=== PATIENT | male | born 1945 | race Caucasian/White ===

== ENCOUNTER 2024-08-27 12:09 | Emergency (ER) | payer MEDICARE, OTHER, SELFPAY ==
[2024-08-27 12:17] VITALS: BP 134/65
[2024-08-27 12:32] LABS: % Basophils 0.3 % (0-2); % Eosinophils 0.9 % (0-6); % Immature Granulocytes 0.1 % (0-0.5); % Monocytes 5.9 % (1.7-9.3); % Neutrophils 73.8 % (42.2-75.2); Absolute Eosinophils 0.1 10^3/uL (0-0.7); Absolute Lymphocytes 1.3 10^3/uL (1.2-3.4); Absolute Monocytes 0.4 10^3/uL (0.1-0.6); Absolute Neutrophils 5.1 10^3/uL (1.4-6.5); Hematocrit 39.6 % (39.0-52.0); Hemoglobin 13.5 g/dL (13.0-18.0); Mean Corp Hgb Conc. 34.1 g/dL (33.0-37.0); Mean Corpuscular Hgb 31.3 pg (27.0-31.0); Mean Corpuscular Volume 91.7 fL (80.0-94.0); Mean Platelet Volume 11.2 fL (7.4-10.4); Nucleated Red Blood Cells % 0 % (-); Platelet Count 184 10^3/uL (130-400); Red Blood Cell Count 4.32 10^6/uL (4.70-6.10); Red Cell Dist. Width 13.4 % (11.5-14.5); White Blood Cell Count 6.9 10^3/uL (4.8-10.8)
[2024-08-27 12:59] LABS: Troponin I < 0.012 ng/ml
[2024-08-27 13:00] LABS: ALT (SGPT) 15 U/L (0-50); AST (SGOT) 20 U/L (17-59); Albumin 4.1 g/dl (3.5-5.0); Alkaline Phosphatase 78 U/L (38-126); Blood Urea Nitrogen 23 mg/dl (9-20); Calcium 9.1 mg/dl (8.4-10.2); Carbon Dioxide 22 mmol/L (22-30); Chloride 107 mmol/L (98-107); Glucose 183 mg/dl (70-99); Potassium 4.1 mmol/L (3.5-5.1); Sodium 140 mmol/L (135-145); Total Bilirubin 0.7 mg/dl (0.2-1.3); Total Protein 6.4 g/dl (6.3-8.2); eGFR > 60.00
[2024-08-27 14:33] VITALS: BP 130/76
--- NOTE | 2024-08-27 14:54 | ED.GENMED ---
History of Present Illness
General
Chief Complaint: Chest Pain
Time Seen by Provider: 08/27/24 14:53
History of Present Illness
History of Present Illness:
TIME OF INITIAL ENCOUNTER: 3 PM
HPI: The patient presents due to general unwell feeling. At times he has been feeling somewhat cold and clammy. He states that 2 weeks ago, he struck his head on the trunk door of a car but has not been having any headaches. He has been having an
upper abdominal discomfort. He has multiple stressors recently including a new dog, of that has been in the hospital and is 10 years older than him, son-in-law suspects degree of stress/anxiety. He also states that he felt that he was in
A-fib all weekend. He is scheduled to have an echo in about 2 weeks and then was to have an ablation with Dr. Vences.
EXAM:
GENERAL: Well appearing in no distress
HEENT: Moist oral mucosa
CARDIOVASCULAR: No murmurs, normal heart rate, regular rhythm, No chest wall tenderness
PULMONARY: No respiratory distress, breath sounds are clear and equal
ABDOMEN: Soft with no peritoneal signs, no tenderness
NEUROLOGIC: Excellent strength all extremities, no coordination deficits
PSYCHIATRIC: Appropriate mental status, normal insight and judgement, appears somewhat anxious
EXTREMITIES: Nontender, no edema, moves all extremities equally
SKIN: No rash, no lesions
NUMBER AND COMPLEXITY OF PROBLEMS ADDRESSED AT THE ENCOUNTER
� Chronic conditions affecting care: Atrial fibrillation, BPH, hemochromatosis
� Acute Exacerbation and/or Progression of Chronic Illness:
� Differential Diagnosis includes: Atrial fibrillation, ACS very unlikely, stress/anxiety, highly doubt intracranial hemorrhage as head injury was 2+ weeks ago and he has no headache, GERD
AMOUNT AND/OR COMPLEXITY OF DATA TO BE REVIEWED AND ANALYZED
� I performed an independent evaluation of and my interpretation is:
EKG: Sinus 81, normal axis, no acute ST abnormality
CT:
X-rays:
Laboratory Studies: CBC unremarkable, troponin less than 0.012, glucose 183, BUN 23 otherwise chemistries unremarkable
Other:
� Review of other/old records: I reviewed records, the patient was seen here for paroxysmal A-fib in 2014
� Clinical information was obtained by an independent historian: I spoke to son-in-law at bedside
� Prescriptions/Medications Considered but not given:
� Further testing considered but not performed:
RISK OF COMPLICATIONS AND/OR MORBIDITY OR MORTALITY OF PATIENT MANAGEMENT
� Social determinants of health affecting care: Lives at home
� Discussion with other providers:
� Escalation of care including admission/observation vs risk of discharge considered: Patient was given low-dose Xanax as a one-time dose as well as Pepcid. Strong suspect component of stress/anxiety.
ANY OTHER UPDATES:
4 PM: On reassessment after Pepcid and Xanax were given, he no longer has any abdominal/chest but stills feels about the same regarding anxiety. Given his age, will hold off on any benzos. To follow-up with cardiology and PMD. I also suggest that
he try PPI/H2 yazan as outpatient
Past History
Past History
ED Past Medical History: Hypercholesterolemia
ED Past Surgical History: Appendectomy and Other (Inguinal hernia repair)
Social History
Tobacco: Non-smoker
Alcohol: None
Drug: None
Personal:
Living: with family
Employment: Retired
Family History
Family History: Unable to obtain
Phy Exam
Physical Exam
Physical Exam:
See HPI
Scores
Heart Score for Chest Pain Patients
STEMI patient?: Not applicable
Course
Orders/Labs/Results
Orders:
Orders
08/27/24 12:11
Electrocardiogram (*1) Urgent
Reason for Study: Chest Pain
EKG- Treatment ONCE
08/27/24 12:26
Complete Blood Count/With Diff Urgent
Comprehensive Metabolic Panel Urgent
Troponin I Urgent
08/27/24 15:06
Alprazolam [Xanax] 0.5 mg PO NOW STA
Famotidine [Pepcid] 20 mg PO NOW STA
Abnormal Lab Results
08/27/24
12:26
RBC 4.32 L 10^6/uL
(4.70-6.10)
MCH 31.3 H pg
(27.0-31.0)
MPV 11.2 H fL
(7.4-10.4)
Lymphocytes % 19.0 L %
(20.5-51.1)
BUN 23 H mg/dl
(9-20)
Glucose 183 H mg/dl
(70-99)
08/27/24 12:26
08/27/24 12:26
Vital Signs
Initial and Last Documented VS:
Initial Vital Signs
Temp Pulse Resp BP Pulse Ox
36.7 C 91 16 134/65 98
08/27/24 12:17 08/27/24 12:17 08/27/24 12:17 08/27/24 12:17 08/27/24 12:17
Last Documented Vital Signs
Temp Pulse Resp BP Pulse Ox
37.0 C 66 18 130/76 98
08/27/24 14:33 08/27/24 14:33 08/27/24 14:33 08/27/24 14:33 08/27/24 14:33
*Critical Care Note
Total Time (30-74mins, 75-104mins- exclusive of procedures): Not Applicable
ED Attending Note
-
Portions of this chart may have been created with voice recognition software.� Occasional wrong word or��sound alike� substitutions may have occurred due to the inherent limitations of voice recognition software.
Discharge Plan
Departure
Patient Disposition: Home (Routine Discharge)
Date of Disposition: 08/27/24
Time of Disposition: 16:04
Patient with high blood pressure during this ER visit?: Yes
Discharge Problem:
Abdominal pain, epigastric
Instructions: Acid reflux and GERD in adults, Chest pain
Prescriptions:
No Action
coenzyme Q10 [CoQ-10] 100 MG capsule
100 mg PO .Q48HR
bogjiscp-wjg-XX-lycopen-lutein [Centrum Silver] 1 EACH tablet
1 ea PO DAILY
simvastatin 20 MG tablet
20 mg PO QPM Qty: 30 11RF
metoprolol succinate 50 MG tablet extended release 24 hr
50 mg PO DAILY Qty: 30 11RF
warfarin [Jantoven] 2.5 MG tablet
5 mg PO DAILY Qty: 60 6RF
Rx Instructions:
Please take 5mg (2 tablets) of coumadin tonight (05/31), 06/01, 06/02. You have an appointment with the coumadin clinic on Saturday 06/03 at 2:15pm for an INR check. They will dose further from there.
meclizine 25 MG tablet
25 mg PO Q8HPRN PRN (Reason: nausea or vertigo) Qty: 20 0RF
ondansetron 4 MG tablet,disintegrating
4 mg PO TIDPRN PRN (Reason: nausea/vomiting) Qty: 15 0RF
amoxicillin-pot clavulanate 1 TABLET tablet
1 tab PO Q12 Qty: 13 0RF
Referrals:
UNKNOWN - PT DOES,NOT KNOW [Family Provider] -
Activity Restrictions/Additional Instructions:
The cause of your symptoms is unclear. It could be related to stress/anxiety. Cardiac blood work is normal. We gave a one-time dose of Xanax 0.5 mg and also a dose of Pepcid 20 mg. You could take [id number] Pepcid for relief of upper
abdominal pain in case this could be related to excess stomach acid. You could also try a 2-week course of bhvd-suq-obmzfym omeprazole to help block the production of acid. Pepcid is generally used on an as-needed basis and omeprazole is used
daily for 2 weeks. Follow-up with primary care. Continue to follow-up with your donor support technician as well.
Interventions
Interventions:
*Risk Screen - Suicide Last Done: 08/27/24 12:17
*General Assessment Last Done: 08/27/24 15:32
*Neglect/Abuse Screening Last Done: 08/27/24 12:17
*ED- Fall Risk Assessment Last Done: 08/27/24 15:32
*ED COVID-19 Vaccine History Last Done: 08/27/24 15:32
ED- Cardiac Assessment Last Done: 08/27/24 15:32
Discharge Date and Time
Print Language: SOUTH AFR[place]
[2024-08-27 15:28] VITALS: BMI 26.4
[2024-08-27] MEDS: XANAX 0.5 MG PO (15:30)
[2024-08-27] MEDS: PEPCID 20 MG PO (15:30)
[2024-08-27 16:16] VITALS: BP 136/95
== END 2024-08-27 16:23 | disposition home or self-care (01) ==
LOC: EMR 12:09
PROVIDERS: Student in an Organized Health Care Education/Training Program; EMERGENCY PHYSICIAN Emergency Medicine; FAMILY PHYSICIAN Internal Medicine Geriatric Medicine
DX: R10.13 Epigastric pain (principal); R03.0 Elevated blood-pressure reading, without diagnosis of hypertension; F41.9 Anxiety disorder, unspecified; Z63.79 Other stressful life events affecting family and household
CPT/HCPCS: 99284; 80053; 84484; 85025; 93005

== ENCOUNTER → 2024-09-13 10:13 | Outpatient (REF) | payer MEDICARE, OTHER, SELFPAY | LOC: HWRCS 10:13 | PROVIDERS: ATTENDING PHYSICIAN Nuclear Medicine Nuclear Cardiology; FAMILY PHYSICIAN Internal Medicine Geriatric Medicine | DX: I48.0 Paroxysmal atrial fibrillation (principal) | CPT/HCPCS: 93306 ==

== ENCOUNTER → 2024-09-17 10:22 | Outpatient (REF) | payer MEDICARE, OTHER, SELFPAY | LOC: HWRAD 10:22 | PROVIDERS: ATTENDING PHYSICIAN Internal Medicine Geriatric Medicine | DX: R41.82 Altered mental status, unspecified (principal); R41.0 Disorientation, unspecified | CPT/HCPCS: 70450 ==

== ENCOUNTER 2024-09-21 11:52 | Emergency (ER) | payer MEDICARE, OTHER, SELFPAY ==
[2024-09-21 11:56] VITALS: BP 128/69
--- NOTE | 2024-09-21 13:33 | ED.GENMED ---
History of Present Illness
General
Chief Complaint: Crisis Evaluation
Exam Limitations: none
Time Seen by Provider: 09/21/24 12:22
Nursing documentation reviewed up to this point in time: agreed with
History of Present Illness
History of Present Illness:
Patient is an 79-year-old male who presents to the ER for evaluation. Patient is felt very depressed recently over his being sick and the recent passing of his dog and today reports he almost took his life with his gun. He reports he has
never had a history of depression and simply came on very suddenly.
Patient has no physical complaints.
Past History
Past History
ED Past Medical History: Hypercholesterolemia
ED Past Surgical History: Appendectomy and Other (Inguinal hernia repair)
Social History
Tobacco: Non-smoker
Alcohol: None
Drug: None
Personal:
Living: with family
Employment: Retired
Family History
Family History: Unable to obtain
Review of Systems
Review of Systems
Allergies reviewed?: Yes
All Other Systems: ROS reviewed and negative except as documented in HPI and ROS
Constitutional: Reports no symptoms; Denies fever, fatigue or chills
Respiratory: Reports no symptoms
Cardiac: Reports no symptoms
ABD/GI: Reports no symptoms
Musculoskeletal: Reports no symptoms
Skin: Reports no symptoms
Neurological: Reports no symptoms
Psychiatric: Reports depression and suicidal
Phy Exam
General Physical Exam
General Presentation: no apparent distress
General age: appears stated age
General Skin: warm and dry
General Habitus: normal
General Mental: alert
General Hydration: appears well hydrated
Cardiovascular Exam
Cardiovascular Exam: regular rate/rhythm, no murmur and normal peripheral pulses
Pulmonary Exam
Pulmonary Exam: lungs clear and no respiratory distress
Neurological Exam
Neurological Exam: alert and oriented x3
Musculoskeletal Exam
Musculoskeletal Exam: full ROM
Skin Exam
Skin Exam: normal color and warm/dry
Psychiatric Exam
Psychiatric Exam: other (Flat affect)
Course
Orders/Labs/Results
Orders:
Orders
09/21/24 11:53
1:1 Observation - Suicide/ Violent Behavior As Directed
Crisis Consult Urgent
Reason for Consult: SI
09/21/24 12:04
EKG [Electrocardiogram (*1)] Urgent
Reason for Study: Chest Pain
09/21/24 12:05
EKG- Treatment ONCE
09/21/24 14:37
Acetaminophen Urgent
Alcohol Urgent
Complete Blood Count/With Diff Urgent
Comprehensive Metabolic Panel Urgent
Fentanyl, Urine Urgent
Salicylate Urgent
Urine Drug Abuse Screen Urgent
Date Specimen was Collected: 09/21/24
Time Specimen was Collected: 14:33
09/21/24 15:52
COVID-19 Antigen Urgent
Source: Nasal Swab
Abnormal Lab Results
09/21/24
14:37
RBC 4.27 L 10^6/uL
(4.70-6.10)
MPV 10.9 H fL
(7.4-10.4)
Absolute Monos (auto) 0.9 H 10^3/uL
(0.1-0.6)
Lymphocytes % 20.3 L %
(20.5-51.1)
Monocytes % 11.5 H %
(1.7-9.3)
Chloride 108 H mmol/L
(98-107)
BUN 24 H mg/dl
(9-20)
Salicylates < 1.0 L mg/dl
(2.0-20.0)
Acetaminophen < 10 L ug/ml
(10-30)
U Benzodiazepines Scrn Positive H
(Negative)
09/21/24 14:37
09/21/24 14:37
Vital Signs
Initial and Last Documented VS:
Initial Vital Signs
Temp Pulse Resp BP Pulse Ox
98.2 F 84 18 128/69 98
09/21/24 11:56 09/21/24 11:56 09/21/24 11:56 09/21/24 11:56 09/21/24 11:56
Last Documented Vital Signs
Temp Pulse Resp BP Pulse Ox
98.2 F 84 18 128/69 98
09/21/24 11:56 09/21/24 11:56 09/21/24 11:56 09/21/24 11:56 09/21/24 11:56
MDM/Problems Addressed
Differential Diagnosis Includes:
Not limited to: suicidal ideation, depression
MDM/Problems Addressed:
Patient presents for suicidal ideation recent depression which has worsened. Patient was eval by crisis and they do recommend inpatient will check basic labs. Patient has no physical complaints.
Patient is medically cleared for crisis. As per crisis patient should have a inpatient bed at [facility].
Chronic conditions affecting care:
Patient presents for suicidal ideation, recent depression which is worsened
*Pulse Oximetry
Patient hypoxic: no
*Critical Care Note
Total Time (30-74mins, 75-104mins- exclusive of procedures): Not Applicable
ED Attending Note
-
Portions of this chart may have been created with voice recognition software.� Occasional wrong word or��sound alike� substitutions may have occurred due to the inherent limitations of voice recognition software.
Discharge Plan
Departure
Patient Disposition: Psych Facility
Date of Disposition: 09/21/24
Time of Disposition: 16:35
Covid-19: Not Applicable
Discharge Problem:
Suicidal ideation
Prescriptions:
No Action
coenzyme Q10 [CoQ-10] 100 MG capsule
100 mg PO .Q48HR
igwhhdxa-vms-RG-lycopen-lutein [Centrum Silver] 1 EACH tablet
1 ea PO DAILY
simvastatin 20 MG tablet
20 mg PO QPM Qty: 30 11RF
metoprolol succinate 50 MG tablet extended release 24 hr
50 mg PO DAILY Qty: 30 11RF
warfarin [Jantoven] 2.5 MG tablet
5 mg PO DAILY Qty: 60 6RF
Rx Instructions:
Please take 5mg (2 tablets) of coumadin tonight (05/31), 06/01, 06/02. You have an appointment with the coumadin clinic on Saturday 06/03 at 2:15pm for an INR check. They will dose further from there.
meclizine 25 MG tablet
25 mg PO Q8HPRN PRN (Reason: nausea or vertigo) Qty: 20 0RF
ondansetron 4 MG tablet,disintegrating
4 mg PO TIDPRN PRN (Reason: nausea/vomiting) Qty: 15 0RF
amoxicillin-pot clavulanate 1 TABLET tablet
1 tab PO Q12 Qty: 13 0RF
alprazolam [Xanax] 0.5 mg tablet
0.5 mg PO DAILY PRN (Reason: anxiety) Qty: 7 0RF
Referrals:
Demetri Sevilla MD [Family Provider] -
Interventions
Interventions:
*Risk Screen - Suicide Last Done: 09/21/24 11:52
*General Assessment Last Done: 09/21/24 11:56
*Neglect/Abuse Screening Last Done: 09/21/24 12:00
*ED- Fall Risk Assessment Last Done: 09/21/24 12:00
*ED COVID-19 Vaccine History Last Done: 09/21/24 12:00
*Nursing Disposition Last Done: 09/21/24 20:19
ED-Psychological Assessment Last Done: 09/21/24 12:05
Discharge Date and Time
Discharge Date/Time: 09/21/24 20:20
Print Language: ETHIOPIAN
--- NOTE | 2024-09-21 14:13 | EDRN ---
Valdez states ' I feel as if all the jenni in my life is over', ' I feel that I have failed', ' I dont think this is a hump I will get over, I think this is how life is now', ' The thoughts of how to end my life are always there, always ideas racing on
how I would end it'. Valdez reports that he does have guns and knives at home, he is agreeable to his step son removing them from the home till Valdez does not have thoughts of hurting himself. Valdez agress that they are not being sold and that this is
for his safety at this time.
[2024-09-21 14:30] VITALS: BMI 26.7
[2024-09-21 14:52] LABS: % Basophils 0.3 % (0-2); % Eosinophils 1.2 % (0-6); % Immature Granulocytes 0.4 % (0-0.5); % Lymphocytes 20.3 % (20.5-51.1); % Monocytes 11.5 % (1.7-9.3); % Neutrophils 66.3 % (42.2-75.2); Absolute Eosinophils 0.1 10^3/uL (0-0.7); Absolute Lymphocytes 1.5 10^3/uL (1.2-3.4); Absolute Monocytes 0.9 10^3/uL (0.1-0.6); Hematocrit 39.3 % (39.0-52.0); Hemoglobin 13.2 g/dL (13.0-18.0); Mean Corp Hgb Conc. 33.6 g/dL (33.0-37.0); Mean Corpuscular Hgb 30.9 pg (27.0-31.0); Mean Platelet Volume 10.9 fL (7.4-10.4); Nucleated Red Blood Cells % 0 % (-); Platelet Count 183 10^3/uL (130-400); Red Blood Cell Count 4.27 10^6/uL (4.70-6.10); Red Cell Dist. Width 13.2 % (11.5-14.5); White Blood Cell Count 7.5 10^3/uL (4.8-10.8)
[2024-09-21 15:04] LABS: ALT (SGPT) 14 U/L (0-50); AST (SGOT) 18 U/L (17-59); Acetaminophen < 10 ug/ml (10-30); Albumin 3.9 g/dl (3.5-5.0); Alkaline Phosphatase 69 U/L (38-126); Blood Urea Nitrogen 24 mg/dl (9-20); Calcium 9.3 mg/dl (8.4-10.2); Carbon Dioxide 27 mmol/L (22-30); Chloride 108 mmol/L (98-107); Estimated Creatinine Clearance 50 ml/min; Glucose 90 mg/dl (70-99); Salicylate < 1.0 mg/dl (2.0-20.0); Sodium 140 mmol/L (135-145); Total Bilirubin 0.5 mg/dl (0.2-1.3); Total Protein 6.4 g/dl (6.3-8.2); eGFR > 60.00
[2024-09-21 15:09] LABS: Alcohol None Detected
[2024-09-21 15:20] LABS: Amphetamines Negative (Negative); Barbiturates Negative (Negative); Benzodiazepines Positive (Negative); Buprenorphine Negative (Negative); Cocaine Negative (Negative); Marijuana Negative (Negative); Methadone Negative (Negative); Methamphetamines Negative (Negative); Opiates Negative (Negative); Phencyclidine Negative (Negative); Tricyclic Antidepressants Negative (Negative)
[2024-09-21 15:36] LABS: Fentanyl, Urine Negative (Negative)
[2024-09-21 16:16] LABS: COVID-19 Antigen Negative (Negative)
== END 2024-09-21 20:20 ==
LOC: EMR 11:52
PROVIDERS: Nurse Practitioner; EMERGENCY PHYSICIAN Emergency Medicine; FAMILY PHYSICIAN Internal Medicine Geriatric Medicine
DX: R45.851 Suicidal ideations (principal); F32.A Depression, unspecified; E78.00 Pure hypercholesterolemia, unspecified; Z90.49 Acquired absence of other specified parts of digestive tract
CPT/HCPCS: 99283; 80053; 80143; 80179; 80306; 80307; 82077; 85025; 87811; 93005

== ENCOUNTER 2024-10-07 06:00 | Emergency (ER) | payer MEDICARE, OTHER, SELFPAY ==
[2024-10-07 06:04] VITALS: BP 167/87
--- NOTE | 2024-10-07 07:01 | ED.GENMED ---
History of Present Illness
General
Chief Complaint: Psychiatric Problem
Source: patient
Exam Limitations: none
Time Seen by Provider: 10/07/24 06:40
History of Present Illness
History of Present Illness:
79-year-old male presents with son who states the patient has been experiencing a degree of psychosis and paranoia. He was here 2 weeks ago with suicidal ideation and spent a week at [facility]. He was started on certain medications and
discontinued on them. Recently saw family doctor. He has been excessively paranoid recently in the last 2 days stating that his house is going to collapse and he does not have money to repair it. He actually called 911 this morning. Patient
denies thoughts of harming self or others. He denies pain. Family requesting medical and psychiatric evaluation.
Past History
Past History
ED Past Medical History: Hypercholesterolemia
ED Past Surgical History: Appendectomy and Other (Inguinal hernia repair)
Social History
Tobacco: Non-smoker
Alcohol: None
Drug: None
Personal:
Living: with family
Employment: Retired
Family History
Family History: Unable to obtain
Phy Exam
Physical Exam
Physical Exam:
General: Well-developed male no acute respiratory
Psychiatric exam: Pacing in the room repeatedly saying the house is going to collapse and I have no money to repair it. He is denying suicidal thoughts.
Neurologic exam: Normal gait. He is alert and oriented to person and place
Heart: Regular rate and rhythm
Lungs: Clear no wheeze
Skin: Area of contusion/ecchymosis over the left superior forehead
HEENT normocephalic equal round reactive to light
Course
Orders/Labs/Results
Orders:
Orders
10/07/24 06:20
Crisis Consult Urgent
Reason for Consult: pt with paranoia
10/07/24 06:59
CT Head W/o Iv Contrast Urgent
Comment:
Reason For Exam: head injury, paranoia
10/07/24 07:26
Alcohol Urgent
Complete Blood Count/With Diff Urgent
Comprehensive Metabolic Panel Urgent
Drug Screen, Urine [Urine Drug Abuse Screen] Urgent
Date Specimen was Collected: 10/07/24
Time Specimen was Collected: 07:22
Urinalysis Reflex To Culture Urgent
Date Specimen was Collected: 10/07/24
Time Specimen was Collected: 07:22
Urine Microscopic Reflex Cult Urgent
Abnormal Lab Results
10/07/24
07:26
RBC 4.13 L 10^6/uL
(4.70-6.10)
Hgb 12.8 L g/dL
(13.0-18.0)
Hct 37.5 L %
(39.0-52.0)
MPV 10.5 H fL
(7.4-10.4)
Absolute Lymphs (auto) 1.0 L 10^3/uL
(1.2-3.4)
Absolute Monos (auto) 0.8 H 10^3/uL
(0.1-0.6)
Neutrophils % 77.3 H %
(42.2-75.2)
Lymphocytes % 11.7 L %
(20.5-51.1)
Chloride 110 H mmol/L
(98-107)
BUN 26 H mg/dl
(9-20)
Glucose 103 H mg/dl
(70-99)
Ur Occult Blood Reflex 1+ A
(Negative)
Urine Bacteria (Reflex) Few A
(Negative)
Urine Albumin (Reflex) 1+ A
(Neg - Trace)
10/07/24 07:26
10/07/24 07:26
Vital Signs
Initial and Last Documented VS:
Initial Vital Signs
Temp Pulse Resp BP Pulse Ox
98.1 F 71 20 167/87 100
10/07/24 06:04 10/07/24 06:04 10/07/24 06:04 10/07/24 06:04 10/07/24 06:04
Last Documented Vital Signs
Temp Pulse Resp BP Pulse Ox
98.1 F 71 14 137/79 97
10/07/24 06:04 10/07/24 12:49 10/07/24 12:49 10/07/24 12:49 10/07/24 12:49
MDM/Problems Addressed
Differential Diagnosis Includes:
Patient with significant anxiety, paranoia and psychosis. Continually repeating himself. There is some evidence of contusion to the forehead. Will order CT head to evaluate for any traumatic injury. Labs pending. Consult ordered. Patient and
family are interested in psychiatric help. He may require placement into a facility.
*Critical Care Note
Total Time (30-74mins, 75-104mins- exclusive of procedures): Not Applicable
Update Note
Update Note:
Medically, the patient was evaluated. CT of the head was within normal limits. Labs reviewed without significant finding. Patient seen and evaluated by the crisis department. They are starting a bed search. It is possible that the patient may
be a hold here in the emergency room until there is a bed available.
Patient accepted at a facility called [facility]. He is being picked up at 530 today.
ED Attending Note
-
Portions of this chart may have been created with voice recognition software.� Occasional wrong word or��sound alike� substitutions may have occurred due to the inherent limitations of voice recognition software.
Discharge Plan
Departure
Patient Disposition: Psych Facility
Date of Disposition: 10/07/24
Time of Disposition: 13:01
Patient with high blood pressure during this ER visit?: No
Discharge Problem:
Psychosis
Prescriptions:
No Action
simvastatin 20 MG tablet
20 mg PO QPM Qty: 30 11RF
metoprolol succinate 50 MG tablet extended release 24 hr
25 mg PO DAILY
simvastatin [Zocor] 20 mg Tablet
20 mg PO HS
finasteride [Proscar] 5 mg Tablet
5 mg PO DAILY
mirtazapine 7.5 mg Tablet
7.5 mg PO HS
duloxetine [Cymbalta] 30 mg Capsule,Delayed Release(Dr/Ec)
30 mg PO DAILY
eszopiclone [Lunesta] 1 mg Tablet
Rx Instructions:
if 1 mg is not enough take 2mg.
aspirin 81 mg Capsule
81 mg PO DAILY
Referrals:
UNKNOWN - PT DOES,NOT KNOW [Family Provider] -
Interventions
Interventions:
*Risk Screen - Suicide Last Done: 10/07/24 06:04
*General Assessment Last Done: 10/07/24 06:04
*Neglect/Abuse Screening Last Done: 10/07/24 06:04
*ED- Fall Risk Assessment Last Done: 10/07/24 06:04
*ED COVID-19 Vaccine History Last Done: 10/07/24 06:04
ED-Psychological Assessment Last Done: 10/07/24 07:27
Discharge Date and Time
Print Language: CHILEAN
[2024-10-07 07:41] LABS: % Basophils 0.2 % (0-2); % Eosinophils 1.5 % (0-6); % Immature Granulocytes 0.4 % (0-0.5); % Lymphocytes 11.7 % (20.5-51.1); % Monocytes 8.9 % (1.7-9.3); % Neutrophils 77.3 % (42.2-75.2); Absolute Eosinophils 0.1 10^3/uL (0-0.7); Absolute Monocytes 0.8 10^3/uL (0.1-0.6); Absolute Neutrophils 6.5 10^3/uL (1.4-6.5); Hematocrit 37.5 % (39.0-52.0); Hemoglobin 12.8 g/dL (13.0-18.0); Mean Corp Hgb Conc. 34.1 g/dL (33.0-37.0); Mean Corpuscular Volume 90.8 fL (80.0-94.0); Mean Platelet Volume 10.5 fL (7.4-10.4); Nucleated Red Blood Cells % 0 % (-); Platelet Count 198 10^3/uL (130-400); Red Blood Cell Count 4.13 10^6/uL (4.70-6.10); Red Cell Dist. Width 13.2 % (11.5-14.5); White Blood Cell Count 8.4 10^3/uL (4.8-10.8)
[2024-10-07 07:58] LABS: Amphetamines Negative (Negative); Barbiturates Negative (Negative); Benzodiazepines Negative (Negative); Buprenorphine Negative (Negative); Cocaine Negative (Negative); Marijuana Negative (Negative); Methadone Negative (Negative); Methamphetamines Negative (Negative); Opiates Negative (Negative); Phencyclidine Negative (Negative); Tricyclic Antidepressants Negative (Negative)
[2024-10-07 07:59] LABS: ALT (SGPT) 25 U/L (0-50); AST (SGOT) 31 U/L (17-59); Alkaline Phosphatase 72 U/L (38-126); Blood Urea Nitrogen 26 mg/dl (9-20); Calcium 9.2 mg/dl (8.4-10.2); Carbon Dioxide 24 mmol/L (22-30); Chloride 110 mmol/L (98-107); Glucose 103 mg/dl (70-99); Potassium 4.6 mmol/L (3.5-5.1); Sodium 140 mmol/L (135-145); Total Bilirubin 0.7 mg/dl (0.2-1.3); Total Protein 6.4 g/dl (6.3-8.2); eGFR > 60.00
[2024-10-07 08:00] LABS: Alcohol None Detected
[2024-10-07 09:24] LABS: Urine Albumin 1+ (Neg - Trace); Urine Bilirubin Negative (Negative); Urine Character Clear (Clear); Urine Color Yellow; Urine Glucose Negative (Negative); Urine Ketone Negative (Negative); Urine Leukocyte Negative (Negative); Urine Nitrite Negative (Negative); Urine Occult Blood 1+ (Negative); Urine Urobilinogen Negative (Neg - 1+)
[2024-10-07 09:39] LABS: Urine Bacteria Few (Negative); Urine Mucus Moderate; Urine Red Blood Cell 0-2 /HPF (0-2); Urine Squamous Cell 0-2 /LPF (Few); Urine White Cell 0-2 /HPF (0-5)
[2024-10-07 12:49] VITALS: BP 137/79
== END 2024-10-07 17:39 ==
LOC: EMR 06:00
PROVIDERS: Physician Assistant; EMERGENCY PHYSICIAN Emergency Medicine
DX: F29 Unspecified psychosis not due to a substance or known physiological condition (principal); E78.00 Pure hypercholesterolemia, unspecified; S00.03XA Contusion of scalp, initial encounter; X58.XXXA Exposure to other specified factors, initial encounter
CPT/HCPCS: 99285; 70450; 80053; 80306; 81003; 81015; 82077; 85025

== ENCOUNTER 2024-11-05 06:59 | Emergency (ER) | payer MEDICARE, OTHER, SELFPAY ==
[2024-11-05] VITALS (13 sets, daily range): BP systolic 108–145; BP diastolic 58–76
--- NOTE | 2024-11-05 07:23 | ED.GENMED ---
History of Present Illness
General
Chief Complaint: Crisis Evaluation
Source: family
Exam Limitations: dementia
Time Seen by Provider: 11/05/24 07:11
History of Present Illness
History of Present Illness:
See MDM
Past History
Past History
ED Past Medical History: Hypercholesterolemia and Psychiatric
ED Past Surgical History: Appendectomy and Other (Inguinal hernia repair)
Social History
Tobacco: Non-smoker
Alcohol: None
Drug: None
Personal:
Living: with family
Employment: Retired
Family History
Family History: Unable to obtain
Phy Exam
Physical Exam
Physical Exam:
See MDM
Course
Orders/Labs/Results
Orders:
Orders
11/05/24 07:22
Crisis Consult Urgent
Reason for Consult: psychosis
Lorazepam [Ativan] 1 mg IV NOW STA
11/05/24 07:30
Complete Blood Count/With Diff Urgent
Comprehensive Metabolic Panel Urgent
11/05/24 07:41
Urinalysis Reflex To Culture Urgent
Date Specimen was Collected: 11/05/24
Time Specimen was Collected: 07:41
Urine Microscopic Reflex Cult Urgent
Abnormal Lab Results
11/05/24 11/05/24
07:30 07:41
RBC 3.74 L 10^6/uL
(4.70-6.10)
Hgb 11.8 L g/dL
(13.0-18.0)
Hct 33.9 L %
(39.0-52.0)
MCH 31.6 H pg
(27.0-31.0)
MPV 11.2 H fL
(7.4-10.4)
Absolute Lymphs (auto) 1.0 L 10^3/uL
(1.2-3.4)
Lymphocytes % 18.5 L %
(20.5-51.1)
Monocytes % 11.1 H %
(1.7-9.3)
Chloride 108 H mmol/L
(98-107)
BUN 23 H mg/dl
(9-20)
Glucose 100 H mg/dl
(70-99)
Total Protein 6.1 L g/dl
(6.3-8.2)
Urine Ketones 2+ A
(Negative)
Ur Occult Blood Reflex 1+ A
(Negative)
Urine RBC 3-6 A /HPF
(0-2)
11/05/24 07:30
11/05/24 07:30
Vital Signs
Initial and Last Documented VS:
Initial Vital Signs
Temp Pulse Resp BP Pulse Ox
98.0 F 85 18 120/65 97
11/05/24 07:01 11/05/24 07:01 11/05/24 07:01 11/05/24 07:01 11/05/24 07:01
Last Documented Vital Signs
Temp Pulse Resp BP Pulse Ox
99.2 F 71 18 127/67 96
11/05/24 07:41 11/05/24 10:27 11/05/24 07:01 11/05/24 10:24 11/05/24 10:24
MDM/Problems Addressed
Differential Diagnosis Includes:
Note:
CHIEF COMPLAINT(S)
Altered mental status and behavioral changes.
HISTORY OF PRESENT ILLNESS
The patient is an 79-year-old male who presents with altered mental status and behavioral changes. He was recently hospitalized for approximately three weeks at a [facility] facility. Since returning home, the patient has exhibited increased agitation
and attempted to leave his residence on multiple occasions, prompting police involvement. He has also demonstrated physical aggression, such as pushing. The patients spouse and family members report significant stress in managing his behavior.
ADDITIONAL HISTORY OBTAINED FROM SOURCES OTHER THAN THE PATIENT
According to the family member, the patient has been attempting to leave the house at various hours, including freelance translator, which necessitated several interventions by the police. The family also reports financial concerns regarding the patients
Medicare coverage.
PHYSICAL EXAM
General: laying in bed and intermittently trying to get out
HEENT: protecting airway
Neck: supple
CV: No evidence of cyanosis
Resp: No accessory muscle use
Abd: Non-distended
Extremities: No deformities
Neuro: alert
Psych: anxious
Skin: no trauma noted
Nursing notes reviewed and vital signs reviewed.
PLAN
Administer lorazepam (Ativan) to manage agitation. Perform routine laboratory tests, including blood work and urine analysis, to rule out any acute metabolic causes for the altered mental status. Engage the crisis team for psychiatric evaluation and
further management.
DIFFERENTIAL DIAGNOSIS
The Differential Diagnosis includes, in no particular order and is not limited to:
- Delirium secondary to infection
- Medication side effects
- Dementia with behavioral disturbances
- Acute stress reaction
- Hypoglycemia
- Electrolyte imbalance
PLAN
The patient will be placed in a psychiatric facility as he is currently willing to be admitted. The crisis team will continue working on securing a placement in a geriatric psychiatric facility.
INDEPENDENT REVIEW OF LABS AND INTERPRETATION OF TESTS
My independent review of blood work and urinalysis indicates that the patient is medically cleared from an acute metabolic standpoint.
MEDICATION RECONCILIATION
Lorazepam was administered to manage the patients agitation.
MEDICAL DECISION MAKING
1. Number & Complexity of Problems: Chronic conditions affecting care: atrial fibrillation. Differential diagnoses considered include delirium secondary to infection, medication side effects, dementia with behavioral disturbances, and acute stress
reaction.
2. Data Reviewed: Category 1: Blood work and urinalysis were reviewed to rule out metabolic causes of altered mental status.
3. Risk: Consideration of admission/observation was made due to the complexity and risk associated with the patients behavioral changes and altered mental status. Admission to a psychiatric facility is appropriate given the situation and the
patients willingness to be admitted.
*Pulse Oximetry
SaO2: 97
Oxygen Mode of Delivery: Room air
*Critical Care Note
Total Time (30-74mins, 75-104mins- exclusive of procedures): Not Applicable
ED Attending Note
-
Portions of this chart may have been created with voice recognition software.� Occasional wrong word or��sound alike� substitutions may have occurred due to the inherent limitations of voice recognition software.
Discharge Plan
Departure
Patient Disposition: Psych Facility
Date of Disposition: 11/05/24
Time of Disposition: 10:44
Discharge Problem:
Aggressive behavior, Depression
Prescriptions:
No Action
simvastatin 20 MG tablet
20 mg PO QPM Qty: 30 11RF
metoprolol succinate 50 MG tablet extended release 24 hr
25 mg PO DAILY
simvastatin [Zocor] 20 mg Tablet
20 mg PO HS
finasteride [Proscar] 5 mg Tablet
5 mg PO DAILY
mirtazapine 7.5 mg Tablet
7.5 mg PO HS
duloxetine [Cymbalta] 30 mg Capsule,Delayed Release(Dr/Ec)
30 mg PO DAILY
eszopiclone [Lunesta] 1 mg Tablet
Rx Instructions:
if 1 mg is not enough take 2mg.
aspirin 81 mg Capsule
81 mg PO DAILY
Referrals:
UNKNOWN - PT DOES,NOT KNOW [Family Provider]
Interventions
Interventions:
*Risk Screen - Suicide Last Done: 11/05/24 07:46
*General Assessment Last Done: 11/05/24 07:46
*Neglect/Abuse Screening Last Done: 11/05/24 07:46
*ED COVID-19 Vaccine History Last Done: 11/05/24 07:46
ED-Psychological Assessment Last Done: 11/05/24 07:46
Discharge Date and Time
Print Language: ECUADOREAN
[2024-11-05] MEDS: ATIVAN 1 MG IV (07:27)
[2024-11-05 08:04] LABS: % Basophils 0.2 % (0-2); % Eosinophils 1.3 % (0-6); % Immature Granulocytes 0.4 % (0-0.5); % Lymphocytes 18.5 % (20.5-51.1); % Monocytes 11.1 % (1.7-9.3); % Neutrophils 68.5 % (42.2-75.2); Absolute Eosinophils 0.1 10^3/uL (0-0.7); Absolute Monocytes 0.6 10^3/uL (0.1-0.6); Absolute Neutrophils 3.8 10^3/uL (1.4-6.5); Hematocrit 33.9 % (39.0-52.0); Hemoglobin 11.8 g/dL (13.0-18.0); Mean Corp Hgb Conc. 34.8 g/dL (33.0-37.0); Mean Corpuscular Hgb 31.6 pg (27.0-31.0); Mean Corpuscular Volume 90.6 fL (80.0-94.0); Mean Platelet Volume 11.2 fL (7.4-10.4); Nucleated Red Blood Cells % 0 % (-); Platelet Count 189 10^3/uL (130-400); Red Blood Cell Count 3.74 10^6/uL (4.70-6.10); Red Cell Dist. Width 13.8 % (11.5-14.5); White Blood Cell Count 5.6 10^3/uL (4.8-10.8)
[2024-11-05 08:06] LABS: Urine Albumin Negative (Neg - Trace); Urine Bilirubin Negative (Negative); Urine Character Clear (Clear); Urine Color Yellow; Urine Glucose Negative (Negative); Urine Ketone 2+ (Negative); Urine Leukocyte Negative (Negative); Urine Nitrite Negative (Negative); Urine Occult Blood 1+ (Negative); Urine Urobilinogen Negative (Neg - 1+)
[2024-11-05 08:11] LABS: ALT (SGPT) 19 U/L (0-50); AST (SGOT) 27 U/L (17-59); Albumin 3.9 g/dl (3.5-5.0); Alkaline Phosphatase 80 U/L (38-126); Blood Urea Nitrogen 23 mg/dl (9-20); Carbon Dioxide 22 mmol/L (22-30); Chloride 108 mmol/L (98-107); Glucose 100 mg/dl (70-99); Potassium 4.4 mmol/L (3.5-5.1); Sodium 137 mmol/L (135-145); Total Bilirubin 0.9 mg/dl (0.2-1.3); Total Protein 6.1 g/dl (6.3-8.2); eGFR 55.53
[2024-11-05 08:31] LABS: Urine Mucus Many
[2024-11-05 08:35] LABS: Urine Amorphous Seen
[2024-11-05 08:36] LABS: Urine Granular Cast 0-2 /LPF (0); Urine Hyaline Cast 0-2 /LPF (0-2)
[2024-11-05 08:40] LABS: Urine White Cell 0-2 /HPF (0-5)
[2024-11-05 18:09] LABS: COVID-19 Antigen Negative (Negative)
[2024-11-05 20:00] LABS: Amphetamines Negative (Negative); Barbiturates Negative (Negative); Benzodiazepines Negative (Negative); Buprenorphine Negative (Negative); Cocaine Negative (Negative); Marijuana Negative (Negative); Methadone Negative (Negative); Methamphetamines Negative (Negative); Opiates Negative (Negative); Phencyclidine Negative (Negative); Tricyclic Antidepressants Negative (Negative)
--- NOTE | 2024-11-05 21:25 | ED.CRISIS ---
ED Crisis Note
ED Crisis Note
Subjective:
Pt sent to ER for increased agitation. Waiting for placement.....apparently accepted by [facility] but they require labs/imaging which are clinically unnecessary and irrelevant.
Objective:
Currenlty calm and without complaint
Assessment/Plan:
My interpretation of the chest x-ray is no acute disease. Hiatal hernia which was present in 2014.
Of note the patient had a CT of the head less than a month ago which showed no acute abnormality.
Patient medically clear for psychiatric placement
[2024-11-05] MEDS: ATIVAN 1 MG PO (21:33)
[2024-11-06] VITALS (15 sets, daily range): BP systolic 110–159; BP diastolic 57–105
--- NOTE | 2024-11-06 09:20 | PHANOTE ---
med rec note called patient previous [facility] at [phone], left message for them to fax over medication list patient discharged on 11/02/2024, called back a second time to get fax number but no answer and then they hung up
on me
[2024-11-06] MEDS: ATIVAN 1 MG IV (11:08)
== END 2024-11-06 16:28 ==
LOC: EMR 06:59
PROVIDERS: Physician Assistant; EMERGENCY PHYSICIAN Student in an Organized Health Care Education/Training Program
DX: F03.93 Unspecified dementia, unspecified severity, with mood disturbance (principal); F03.92 Unspecified dementia, unspecified severity, with psychotic disturbance; F03.911 Unspecified dementia, unspecified severity, with agitation; F32.A Depression, unspecified; E78.00 Pure hypercholesterolemia, unspecified; Z90.49 Acquired absence of other specified parts of digestive tract
CPT/HCPCS: 99283; 96374; 96376; 71046; 80053; 80306; 81003; 81015; 85025; 87811; 93005